=== PATIENT | male | born 1945 ===

== ENCOUNTER 2023-02-04 06:05 | Day surgery (SDC) | payer OTHER ==
[~2023-02-04] VITALS: Ht 165.1 cm; Wt 73.9 kg
[~2023-02-04 06:05] MED LIST: FOLIC ACID0.8 M1 PO; HORIZANT300 MG PO; LEVO-T88 MCG PO; OMEPRAZOLE20 MG PO; SIMVASTATIN5 MG PO
== END 2023-02-04 14:45 | disposition home or self-care (01) ==
LOC: CIR.AMB 06:05
PROVIDERS: ATTEND Colon & Rectal Surgery
DX: K64.4 Residual hemorrhoidal skin tags (principal); K64.8 Other hemorrhoids; K64.2 Third degree hemorrhoids; K92.2 Gastrointestinal hemorrhage, unspecified; Z20.822 Contact with and (suspected) exposure to COVID-19; I10 Essential (primary) hypertension; Z88.6 Allergy status to analgesic agent